=== PATIENT | male | born 1945 | race Caucasian/White ===

== ENCOUNTER 2019-02-02 12:26 | Emergency (ER) | payer MEDICARE, OTHER ==
[2019-02-02] MEDS ORDERED: Sodium Chloride 0.9% 10 ML Syringe FLUSH PRN (12:32)
[2019-02-02] MEDS ORDERED: Iopamidol 612 MG/ML 100 ML Bottle IVPUSH ONE (12:45)
[2019-02-02 13:19] LABS: CHLORIDE,CL 105 mmol/L (98-107); SODIUM,NA 142 mmol/L (136-145)
[2019-02-02 13:21] LABS: ANION GAP 11.9 mmol/L (10-20)
[2019-02-02] MEDS ORDERED: Morphine 4 MG/ML Syringe IVPUSH ONE (13:25)
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
[2019-02-02] MEDS ORDERED: Morphine 2 MG/ML Syringe IVPUSH ONE (14:37)
[2019-02-02] MEDS ORDERED: Ondansetron 4 MG/2 ML SDV IVPUSH ONE (14:37)
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
[2019-02-02 16:11] LABS: BARBITURATE SCREEN,URINE NEGATIVE (NEGATIVE); BENZODIAZEPINES SCREEN,URINE NEGATIVE (NEGATIVE); EDDP,URINE SCREEN NEGATIVE (NEGATIVE); METHAMPHETAMINE SCREEN, URINE NEGATIVE (NEGATIVE); TCA SCREEN,URINE NEGATIVE (NEGATIVE); THC SCREEN,URINE 50 NG/ML NEGATIVE (NEGATIVE)
== END 2019-02-02 16:01 | disposition short-term general hospital (02) ==
LOC: VM.ED 12:26
DX: S22.079A Unspecified fracture of T9-T10 vertebra, initial encounter for closed fracture (principal); S22.089A Unspecified fracture of T11-T12 vertebra, initial encounter for closed fracture; S00.31XA Abrasion of nose, initial encounter; I25.10 Atherosclerotic heart disease of native coronary artery without angina pectoris; E78.00 Pure hypercholesterolemia, unspecified; I10 Essential (primary) hypertension; J44.9 Chronic obstructive pulmonary disease, unspecified; F17.210 Nicotine dependence, cigarettes, uncomplicated; Z79.82 Long term (current) use of aspirin; Z88.8 Allergy status to other drugs, medicaments and biological substances; Z79.899 Other long term (current) drug therapy; V67.5XXA Driver of heavy transport vehicle injured in collision with fixed or stationary object in traffic accident, initial encounter; Y92.410 Unspecified street and highway as the place of occurrence of the external cause
CPT/HCPCS: 36415; 70450; 71260; 72125; 72128; 72131; 74177; 80053; 80305; 81001; 84484; 85025; 93005; 96374; 96375; 96376; 99285; G0480; J2270; J2405; Q9967

== ENCOUNTER 2019-02-09 15:17 | Inpatient (IN) | payer OTHER, MEDICARE ==
[2019-02-09] MEDS ORDERED: Albuterol/Ipratropium 3.0-0.5 MG/3 ML Neb Soln INH PRN (18:39)
[2019-02-09] MEDS ORDERED: tiZANidine 4 MG Tab PO PRN (18:40)
[2019-02-09] MEDS: Tamsulosin 0.4 MG Cap.ER PO SCH (19:36)
[2019-02-09] MEDS: oxyCODONE 5 MG Tab PO PRN (19:36)
[2019-02-09] MEDS: Simvastatin 10 MG Tab PO SCH (19:36)
[2019-02-09] MEDS: Calcium Carbonate 750 MG Tab.Chew PO PRN (19:36)
[2019-02-09] MEDS: Albuterol/Ipratropium 3.0-0.5 MG/3 ML Neb Soln INH SCH (19:43)
[2019-02-10] MEDS: Albuterol/Ipratropium 3.0-0.5 MG/3 ML Neb Soln INH SCH ×2 (01:06→06:08)
[2019-02-10] MEDS: Aspirin 81 MG Tab.EC PO SCH (07:17)
[2019-02-10] MEDS: oxyCODONE 5 MG Tab PO PRN ×4 (07:17→19:51)
[2019-02-10] MEDS: Polyethylene Glycol 3350 Powder 17 GM Packet PO SCH (07:19)
[2019-02-10] MEDS: predniSONE 20 MG Tab PO SCH (07:20)
[2019-02-10] MEDS: Lisinopril 5 MG Tab PO SCH (07:20)
[2019-02-10] MEDS ORDERED: amLODIPine 5 MG Tab PO SCH (08:00)
[2019-02-10] MEDS ORDERED: atorvaSTATin 40 MG Tab PO SCH (08:00)
[2019-02-10] MEDS ORDERED: Albuterol/Ipratropium 3.0-0.5 MG/3 ML Neb Soln INH SCH (11:11)
[2019-02-10] MEDS: Calcium Carbonate 750 MG Tab.Chew PO PRN ×2 (12:01→19:53)
[2019-02-10] MEDS: Indacaterol/Glycopyrrolate 1 EA Cap.W.Dev Kit of 6 IH SCH ×2 (12:12→19:53)
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
[2019-02-10] MEDS: Simvastatin 10 MG Tab PO SCH (19:52)
[2019-02-10] MEDS: tiZANidine 4 MG Tab PO PRN (19:52)
[2019-02-10] MEDS: Tamsulosin 0.4 MG Cap.ER PO SCH (19:53)
[2019-02-10] MEDS: Nicotine 21 MG/24 Hr Patch TRDERM SCH (21:11)
[2019-02-11] MEDS: Polyethylene Glycol 3350 Powder 17 GM Packet PO SCH (08:09)
[2019-02-11] MEDS: Nicotine 21 MG/24 Hr Patch TRDERM SCH (08:10)
[2019-02-11] MEDS: Aspirin 81 MG Tab.EC PO SCH (08:13)
[2019-02-11] MEDS: Indacaterol/Glycopyrrolate 1 EA Cap.W.Dev Kit of 6 IH SCH ×2 (08:13→19:32)
[2019-02-11] MEDS: oxyCODONE 5 MG Tab PO PRN ×3 (08:13→19:32)
[2019-02-11] MEDS: Lisinopril 5 MG Tab PO SCH (08:14)
[2019-02-11] MEDS: predniSONE 20 MG Tab PO SCH (08:15)
[2019-02-11] MEDS: Calcium Carbonate 750 MG Tab.Chew PO PRN ×2 (08:15→19:33)
[2019-02-11] MEDS: amLODIPine 10 MG Tab PO SCH (08:15)
[2019-02-11] MEDS ORDERED: Polyethylene Glycol 3350 Powder 17 GM Packet PO PRN (15:27)
[2019-02-11] MEDS: Tamsulosin 0.4 MG Cap.ER PO SCH (19:32)
[2019-02-11] MEDS: Simvastatin 10 MG Tab PO SCH (19:32)
[2019-02-11] MEDS: tiZANidine 4 MG Tab PO PRN (19:33)
[2019-02-12] MEDS: Polyethylene Glycol 3350 Powder 17 GM Packet PO SCH (07:47)
[2019-02-12] MEDS: Aspirin 81 MG Tab.EC PO SCH (07:48)
[2019-02-12] MEDS: predniSONE 20 MG Tab PO SCH (07:48)
[2019-02-12] MEDS: Nicotine 21 MG/24 Hr Patch TRDERM SCH (07:48)
[2019-02-12] MEDS: Indacaterol/Glycopyrrolate 1 EA Cap.W.Dev Kit of 6 IH SCH ×2 (07:49→19:50)
[2019-02-12] MEDS: amLODIPine 10 MG Tab PO SCH (07:51)
[2019-02-12] MEDS: Lisinopril 5 MG Tab PO SCH (07:51)
[2019-02-12] MEDS: oxyCODONE 5 MG Tab PO PRN ×2 (15:01→19:47)
[2019-02-12] MEDS: Simvastatin 10 MG Tab PO SCH (19:43)
[2019-02-12] MEDS: Tamsulosin 0.4 MG Cap.ER PO SCH (19:45)
[2019-02-12] MEDS: Calcium Carbonate 750 MG Tab.Chew PO PRN (19:57)
[2019-02-13] MEDS: Polyethylene Glycol 3350 Powder 17 GM Packet PO SCH (08:05)
[2019-02-13] MEDS: Lisinopril 5 MG Tab PO SCH (08:06)
[2019-02-13] MEDS: Aspirin 81 MG Tab.EC PO SCH (08:06)
[2019-02-13] MEDS: predniSONE 20 MG Tab PO SCH (08:06)
[2019-02-13] MEDS: Nicotine 21 MG/24 Hr Patch TRDERM SCH (08:06)
[2019-02-13] MEDS: amLODIPine 10 MG Tab PO SCH (08:07)
[2019-02-13] MEDS: Indacaterol/Glycopyrrolate 1 EA Cap.W.Dev Kit of 6 IH SCH ×2 (08:10→20:20)
[2019-02-13] MEDS: oxyCODONE 5 MG Tab PO PRN ×3 (10:22→20:25)
[2019-02-13] MEDS: Tamsulosin 0.4 MG Cap.ER PO SCH (20:18)
[2019-02-13] MEDS: Simvastatin 10 MG Tab PO SCH (20:19)
[2019-02-14] MEDS: predniSONE 20 MG Tab PO SCH (08:15)
[2019-02-14] MEDS: Aspirin 81 MG Tab.EC PO SCH (08:15)
[2019-02-14] MEDS: oxyCODONE 5 MG Tab PO PRN ×2 (08:15→20:31)
[2019-02-14] MEDS: Lisinopril 5 MG Tab PO SCH (08:16)
[2019-02-14] MEDS: amLODIPine 10 MG Tab PO SCH (08:16)
[2019-02-14] MEDS: Indacaterol/Glycopyrrolate 1 EA Cap.W.Dev Kit of 6 IH SCH ×2 (08:17→19:35)
[2019-02-14] MEDS: Nicotine 21 MG/24 Hr Patch TRDERM SCH (08:17)
[2019-02-14] MEDS: Polyethylene Glycol 3350 Powder 17 GM Packet PO SCH (08:18)
[2019-02-14] MEDS: Tamsulosin 0.4 MG Cap.ER PO SCH (19:36)
[2019-02-14] MEDS: Simvastatin 10 MG Tab PO SCH (19:36)
[2019-02-15] MEDS: Indacaterol/Glycopyrrolate 1 EA Cap.W.Dev Kit of 6 IH SCH ×2 (07:36→20:49)
[2019-02-15] MEDS: Polyethylene Glycol 3350 Powder 17 GM Packet PO SCH (07:36)
[2019-02-15] MEDS: Aspirin 81 MG Tab.EC PO SCH (07:37)
[2019-02-15] MEDS: Nicotine 21 MG/24 Hr Patch TRDERM SCH (07:37)
[2019-02-15] MEDS: predniSONE 20 MG Tab PO SCH (07:37)
[2019-02-15] MEDS: Lisinopril 5 MG Tab PO SCH (07:38)
[2019-02-15] MEDS: amLODIPine 10 MG Tab PO SCH (07:38)
[2019-02-15] MEDS: oxyCODONE 5 MG Tab PO PRN ×3 (09:03→20:51)
[2019-02-15] MEDS: Tamsulosin 0.4 MG Cap.ER PO SCH (20:51)
[2019-02-15] MEDS: Simvastatin 10 MG Tab PO SCH (20:51)
[2019-02-16] MEDS: oxyCODONE 5 MG Tab PO PRN ×3 (05:15→19:23)
[2019-02-16] MEDS: Lisinopril 5 MG Tab PO SCH (08:55)
[2019-02-16] MEDS: Aspirin 81 MG Tab.EC PO SCH (08:55)
[2019-02-16] MEDS: predniSONE 20 MG Tab PO SCH (08:55)
[2019-02-16] MEDS: amLODIPine 10 MG Tab PO SCH (08:55)
[2019-02-16] MEDS: Polyethylene Glycol 3350 Powder 17 GM Packet PO SCH (08:55)
[2019-02-16] MEDS: Indacaterol/Glycopyrrolate 1 EA Cap.W.Dev Kit of 6 IH SCH ×2 (08:56→19:25)
[2019-02-16] MEDS: Nicotine 21 MG/24 Hr Patch TRDERM SCH (08:57)
[2019-02-16] MEDS ORDERED: Hydrocortisone 1% Crm 30 GM Tube TOP PRN (11:24)
[2019-02-16] MEDS: Simvastatin 10 MG Tab PO SCH (19:24)
[2019-02-16] MEDS: Tamsulosin 0.4 MG Cap.ER PO SCH (19:24)
[2019-02-17] MEDS: oxyCODONE 5 MG Tab PO PRN ×3 (00:27→19:24)
[2019-02-17] MEDS: Indacaterol/Glycopyrrolate 1 EA Cap.W.Dev Kit of 6 IH SCH ×2 (07:23→19:25)
[2019-02-17] MEDS: Nicotine 21 MG/24 Hr Patch TRDERM SCH (07:23)
[2019-02-17] MEDS: Lisinopril 5 MG Tab PO SCH (07:25)
[2019-02-17] MEDS: predniSONE 20 MG Tab PO SCH (07:25)
[2019-02-17] MEDS: Polyethylene Glycol 3350 Powder 17 GM Packet PO SCH (07:25)
[2019-02-17] MEDS: Aspirin 81 MG Tab.EC PO SCH (07:25)
[2019-02-17] MEDS: amLODIPine 10 MG Tab PO SCH (07:25)
[2019-02-17] MEDS: Tamsulosin 0.4 MG Cap.ER PO SCH (19:24)
[2019-02-17] MEDS: Simvastatin 10 MG Tab PO SCH (19:25)
[2019-02-18] MEDS: oxyCODONE 5 MG Tab PO PRN (08:12)
[2019-02-18] MEDS: Nicotine 21 MG/24 Hr Patch TRDERM SCH (08:12)
[2019-02-18] MEDS: Polyethylene Glycol 3350 Powder 17 GM Packet PO SCH (08:13)
[2019-02-18] MEDS: Indacaterol/Glycopyrrolate 1 EA Cap.W.Dev Kit of 6 IH SCH (08:13)
[2019-02-18] MEDS: Lisinopril 5 MG Tab PO SCH (08:13)
[2019-02-18] MEDS: Aspirin 81 MG Tab.EC PO SCH (08:13)
[2019-02-18] MEDS: amLODIPine 10 MG Tab PO SCH (08:13)
[2019-02-18] MEDS: predniSONE 20 MG Tab PO SCH (08:13)
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
== END 2019-02-18 14:10 | disposition home or self-care (01) | DRG 552 ==
LOC: VM.MS 15:49
PROVIDERS: ADMIT Family Medicine; ATTEND Family Medicine
DX: S32.012A Unstable burst fracture of first lumbar vertebra, initial encounter for closed fracture (principal); I25.10 Atherosclerotic heart disease of native coronary artery without angina pectoris; E78.00 Pure hypercholesterolemia, unspecified; I10 Essential (primary) hypertension; J44.9 Chronic obstructive pulmonary disease, unspecified; F17.210 Nicotine dependence, cigarettes, uncomplicated; M19.91 Primary osteoarthritis, unspecified site; Z85.51 Personal history of malignant neoplasm of bladder; Z88.8 Allergy status to other drugs, medicaments and biological substances; Z79.82 Long term (current) use of aspirin; Z79.899 Other long term (current) drug therapy
CPT/HCPCS: 94640; 94760; 97110-GP; 97116-GP; 97161-GP; 97165-GO; 97530-GP; 97535-GO; A9270-GY; J7620-GY

== ENCOUNTER 2023-02-18 16:04 | Inpatient (IN) | payer MEDICARE, OTHER ==
[2023-02-18] MEDS ORDERED: Ondansetron 4 MG Tab.DIS PO PRN (16:58)
[2023-02-18] MEDS ORDERED: Acetaminophen 325 MG Tab PO PRN (16:58)
[2023-02-18] MEDS ORDERED: Sodium Bicarbonate 150 MEQ in Dextrose 5% in Water 1,000 ML IV ONE ×2 (17:04)
[2023-02-18] MEDS ORDERED: Albuterol HFA 18 Gm Inhaler INH PRN (17:24)
[2023-02-18] MEDS ORDERED: Calcium Carbonate 750 MG Tab.Chew PO PRN (17:54)
[2023-02-18 19:16] LABS: CALCIUM 8.2 mg/dL (8.5-10.1); EST CRCL DRUG DOSING (CG) 6.34 mL/min; POTASSIUM,K 5.4 mmol/L (3.5-5.1)
[2023-02-18 19:17] LABS: ANION GAP 16.4 mmol/L (5-15)
[2023-02-18] MEDS: amLODIPine 5 MG Tab PO SCH (19:17)
[2023-02-18 19:19] LABS: CREATININE 8.8 mg/dL (0.70-1.30)
[2023-02-18] MEDS: Tamsulosin 0.4 MG Cap.ER PO SCH (20:46)
[2023-02-18] MEDS: Albuterol/Ipratropium 3.0-0.5 MG/3 ML Neb Soln INH SCH (20:47)
[2023-02-18] MEDS: Simvastatin 10 MG Tab PO SCH (20:47)
[2023-02-18] MEDS: Dextrose 5% in Water 1,000 ML IV SCH (22:42)
[2023-02-19] MEDS: Dextrose 5% in Water 1,000 ML IV SCH (05:10)
[2023-02-19 06:58] LABS: BASOPHILS PERCENT AUTO 0.2 % (0.2-1.2); EOSINOPHILS ABSOLUTE AUTO 0.3 x10^3/uL (0.0-0.5); EOSINOPHILS PERCENT AUTO 3.8 % (0.0-4.0); HEMATOCRIT 27.9 % (40.0-52.0); HEMOGLOBIN 9.7 g/dL (14.0-18.0); IMMATURE GRAN ABSOLUTE AUTO 0.02 x10^3/uL (0.00-0.07); LYMPHOCYTES ABSOLUTE AUTO 1.5 x10^3/uL (1.0-4.8); LYMPHOCYTES PERCENT AUTO 22.6 % (25.0-50.0); MEAN CORPUSCULAR HEMOGLOBIN 30.8 pg (26.0-32.0); MEAN CORPUSCULAR HGB CONC 34.8 g/dL (32.0-36.0); MEAN CORPUSCULAR VOLUME 88.6 fL (78.0-93.0); MONOCYTES ABSOLUTE AUTO 0.6 x10^3/uL (0.0-0.8); MONOCYTES PERCENT AUTO 8.9 % (2.0-11.0); NEUTROPHILS ABSOLUTE AUTO 4.2 x10^3/uL (1.8-7.7); NEUTROPHILS PERCENT AUTO 64.2 % (50.0-80.0); PLATELET COUNT,PLT 284 x10^3/uL (130-400); RED BLOOD CELL COUNT 3.15 x10^6/uL (4.5-6.0); WHITE BLOOD CELL COUNT,WBC 6.5 x10^3/uL (4.0-10.0)
[2023-02-19 07:19] LABS: A/G RATIO 0.73; ALBUMIN 2.7 g/dL (3.4-5.0); ALKALINE PHOSPHATASE 69 U/L (46-116); BILIRUBIN TOTAL 0.2 mg/dL (0.2-1.0); BLOOD UREA NITROGEN,BUN 50 mg/dL (7-18); CALCIUM 8.5 mg/dL (8.5-10.1); CARBON DIOXIDE,CO2 30 mmol/L (21-32); CHLORIDE,CL 106 mmol/L (98-107); GLUCOSE RANDOM 94 mg/dL (70-99); POTASSIUM,K 3.9 mmol/L (3.5-5.1); PROTEIN TOTAL,TP 6.4 g/dL (6.4-8.2); SODIUM,NA 143 mmol/L (136-145)
[2023-02-19] MEDS: Albuterol/Ipratropium 3.0-0.5 MG/3 ML Neb Soln INH SCH ×4 (07:21→20:22)
[2023-02-19 07:30] LABS: ALANINE AMINOTRANSFERASE,ALT 11 U/L (16-63); ANION GAP 10.9 mmol/L (5-15)
[2023-02-19 07:32] LABS: ASPARTATE AMNIOTRANSFERASE,AST < 10 U/L (15-37); CREATININE 3.1 mg/dL (0.70-1.30); ESTIMATED GFR 20 mL/min (>=60)
[2023-02-19] MEDS ORDERED: Enoxaparin 40 MG/0.4 ML Syringe SUBCUT SCH (09:00)
[2023-02-19] MEDS ORDERED: amLODIPine 5 MG Tab PO SCH (09:00)
[2023-02-19] MEDS: Nicotine 14 MG/24 Hr Patch TRDERM SCH (09:16)
[2023-02-19] MEDS: Aspirin 81 MG Tab.Chew PO SCH (09:16)
[2023-02-19] MEDS: amLODIPine 5 MG Tab PO SCH (09:20)
[2023-02-19] MEDS: Heparin Sodium 5,000 Units/ML Vial SUBCUT SCH ×2 (09:22→18:22)
[2023-02-19] MEDS: Sodium Chloride 0.9% 1,000 ML IV SCH ×2 (11:55→19:47)
[2023-02-19] MEDS: Simvastatin 10 MG Tab PO SCH (20:21)
[2023-02-19] MEDS: Tamsulosin 0.4 MG Cap.ER PO SCH (20:21)
[2023-02-20] MEDS: Heparin Sodium 5,000 Units/ML Vial SUBCUT SCH ×2 (01:45→09:18)
[2023-02-20] MEDS: Sodium Chloride 0.9% 1,000 ML IV SCH (03:41)
[2023-02-20] MEDS: Albuterol/Ipratropium 3.0-0.5 MG/3 ML Neb Soln INH SCH ×2 (06:35→10:03)
[2023-02-20 06:57] LABS: HEMATOCRIT 29.6 % (40.0-52.0); MEAN CORPUSCULAR HEMOGLOBIN 30.3 pg (26.0-32.0); MEAN CORPUSCULAR HGB CONC 33.8 g/dL (32.0-36.0); MEAN CORPUSCULAR VOLUME 89.7 fL (78.0-93.0); RED BLOOD CELL COUNT 3.3 x10^6/uL (4.5-6.0); WHITE BLOOD CELL COUNT,WBC 6.1 x10^3/uL (4.0-10.0)
[2023-02-20 07:14] LABS: ANION GAP 12.2 mmol/L (5-15); CALCIUM 8.1 mg/dL (8.5-10.1); CREATININE 1.2 mg/dL (0.70-1.30); EST CRCL DRUG DOSING (CG) 46.76 mL/min; POTASSIUM,K 4.2 mmol/L (3.5-5.1)
[2023-02-20] MEDS: Nicotine 14 MG/24 Hr Patch TRDERM SCH (09:16)
[2023-02-20] MEDS: Aspirin 81 MG Tab.Chew PO SCH (09:20)
[2023-02-20] MEDS: amLODIPine 5 MG Tab PO SCH (09:21)
== END 2023-02-20 14:20 | disposition home or self-care (01) | DRG 683 ==
LOC: VM.MS 16:04
PROVIDERS: ADMIT Family Medicine; ATTEND Family Medicine
PROC: 0T9B70Z Drainage of Bladder with Drainage Device, Via Natural or Artificial Opening (ICD-10-PCS; principal; 2023-02-18)
DX: N17.9 Acute kidney failure, unspecified (principal); E87.20 Acidosis, unspecified; I12.9 Hypertensive chronic kidney disease with stage 1 through stage 4 chronic kidney disease, or unspecified chronic kidney disease; N18.30 Chronic kidney disease, stage 3 unspecified; J44.9 Chronic obstructive pulmonary disease, unspecified; I73.9 Peripheral vascular disease, unspecified; Z66 Do not resuscitate; D63.1 Anemia in chronic kidney disease; E78.00 Pure hypercholesterolemia, unspecified; M19.90 Unspecified osteoarthritis, unspecified site; F17.210 Nicotine dependence, cigarettes, uncomplicated; E87.5 Hyperkalemia; N40.0 Benign prostatic hyperplasia without lower urinary tract symptoms; N13.30 Unspecified hydronephrosis; R33.9 Retention of urine, unspecified; N32.89 Other specified disorders of bladder; Z85.51 Personal history of malignant neoplasm of bladder; Z90.6 Acquired absence of other parts of urinary tract; Z87.01 Personal history of pneumonia (recurrent); Z79.899 Other long term (current) drug therapy; Z79.82 Long term (current) use of aspirin; Z88.8 Allergy status to other drugs, medicaments and biological substances
CPT/HCPCS: 36415; 51702; 51798; 74176; 80048; 80053; 82947; 85025; 85027; 94640; A9270-GY; J1644; J3490; J7030; J7060; J7620-GY

== ENCOUNTER 2023-03-23 10:53 | Emergency (ER) | payer MEDICARE, OTHER | END 2023-03-23 11:25 | disposition home or self-care (01) | LOC: VM.ED 10:53 | DX: T83.021A Displacement of indwelling urethral catheter, initial encounter (principal); I25.10 Atherosclerotic heart disease of native coronary artery without angina pectoris; J44.9 Chronic obstructive pulmonary disease, unspecified; E78.00 Pure hypercholesterolemia, unspecified; I10 Essential (primary) hypertension; Z88.8 Allergy status to other drugs, medicaments and biological substances; Z79.899 Other long term (current) drug therapy; Z79.82 Long term (current) use of aspirin | CPT/HCPCS: 99283 ==

== ENCOUNTER 2024-03-26 18:03 | Inpatient (IN) | payer MEDICARE, OTHER ==
[2024-03-26] MEDS ORDERED: Sodium Chloride 0.9% 10 ML Syringe FLUSH PRN (18:10)
[2024-03-26 18:26] LABS: BASOPHILS PERCENT AUTO 0.1 % (0.2-1.2); EOSINOPHILS ABSOLUTE AUTO 0.1 x10^3/uL (0.0-0.5); EOSINOPHILS PERCENT AUTO 0.3 % (0.0-4.0); HEMATOCRIT 42.4 % (40.0-52.0); HEMOGLOBIN 13.7 g/dL (14.0-18.0); IMMATURE GRAN ABSOLUTE AUTO 0.06 x10^3/uL (0.00-0.07); LYMPHOCYTES ABSOLUTE AUTO 1.9 x10^3/uL (1.0-4.8); LYMPHOCYTES PERCENT AUTO 10.4 % (25.0-50.0); MEAN CORPUSCULAR HEMOGLOBIN 30.8 pg (26.0-32.0); MEAN CORPUSCULAR HGB CONC 32.3 g/dL (32.0-36.0); MEAN CORPUSCULAR VOLUME 95.3 fL (78.0-93.0); MONOCYTES ABSOLUTE AUTO 1.3 x10^3/uL (0.0-0.8); NEUTROPHILS ABSOLUTE AUTO 14.7 x10^3/uL (1.8-7.7); NEUTROPHILS PERCENT AUTO 81.9 % (50.0-80.0); PLATELET COUNT,PLT 322 x10^3/uL (130-400); RED BLOOD CELL COUNT 4.45 x10^6/uL (4.5-6.0)
[2024-03-26 18:50] LABS: CREATININE 1.9 mg/dL (0.70-1.30); ESTIMATED GFR 36 mL/min (>=60)
[2024-03-26] MEDS: fentaNYL 50 MCG/ML SDV IVPUSH ONE ×2 (18:52→20:42)
[2024-03-26 19:03] LABS: A/G RATIO 0.82; ALANINE AMINOTRANSFERASE,ALT 21 U/L (16-63); ALBUMIN 3.2 g/dL (3.4-5.0); ALKALINE PHOSPHATASE 73 U/L (46-116); ASPARTATE AMNIOTRANSFERASE,AST 13 U/L (15-37); BILIRUBIN TOTAL 0.3 mg/dL (0.2-1.0); BLOOD UREA NITROGEN,BUN 23 mg/dL (7-18); CALCIUM 8.9 mg/dL (8.5-10.1); CARBON DIOXIDE,CO2 25 mmol/L (21-32); CHLORIDE,CL 108 mmol/L (98-107); GLUCOSE RANDOM 191 mg/dL (70-99); POTASSIUM,K 4.3 mmol/L (3.5-5.1); PROTEIN TOTAL,TP 7.1 g/dL (6.4-8.2); SODIUM,NA 142 mmol/L (136-145)
[2024-03-26 19:06] LABS: ANION GAP 13.3 mmol/L (5-15)
[2024-03-26] MEDS: Iopamidol 612 MG/ML 100 ML Bottle IVPUSH ONE (19:29)
[2024-03-26] MEDS: Sodium Chloride 0.9% 1,000 ML IV ONE (19:40)
[2024-03-26 20:34] LABS: LIPASE 12538 U/L (19-71)
[2024-03-26] MEDS ORDERED: Albuterol/Ipratropium 3.0-0.5 MG/3 ML Neb Soln NEB PRN (21:07)
[2024-03-26] MEDS ORDERED: Ondansetron 4 MG/2 ML SDV IV PRN (21:07)
[2024-03-26] MEDS ORDERED: 50% Dextrose in Water 50 ML Syringe IVPUSH PRN (21:22)
[2024-03-26] MEDS ORDERED: Glucagon,Human Recombinant 1 MG Vial IM PRN (21:22)
[2024-03-26] MEDS: Enoxaparin 40 MG/0.4 ML Syringe SUBCUT ONE (21:44)
[2024-03-26] MEDS: Sodium Chloride 0.9% 1,000 ML IV SCH (21:44)
[2024-03-26] MEDS: Pantoprazole 40 MG Tab.CR PO SCH (21:50)
[2024-03-26] MEDS: HYDROmorphone 0.5 MG/0.5 ML Syringe IVPUSH PRN (22:17)
[2024-03-27 08:16] LABS: EOSINOPHILS PERCENT AUTO 0.1 % (0.0-4.0); HEMATOCRIT 44.9 % (40.0-52.0); HEMOGLOBIN 14.7 g/dL (14.0-18.0); IMMATURE GRAN ABSOLUTE AUTO 0.04 x10^3/uL (0.00-0.07); LYMPHOCYTES PERCENT AUTO 6.2 % (25.0-50.0); MEAN CORPUSCULAR HEMOGLOBIN 31.1 pg (26.0-32.0); MEAN CORPUSCULAR HGB CONC 32.7 g/dL (32.0-36.0); MEAN CORPUSCULAR VOLUME 94.9 fL (78.0-93.0); MONOCYTES PERCENT AUTO 6.1 % (2.0-11.0); NEUTROPHILS ABSOLUTE AUTO 14.2 x10^3/uL (1.8-7.7); NEUTROPHILS PERCENT AUTO 87.4 % (50.0-80.0); PLATELET COUNT,PLT 336 x10^3/uL (130-400); RED BLOOD CELL COUNT 4.73 x10^6/uL (4.5-6.0); WHITE BLOOD CELL COUNT,WBC 16.2 x10^3/uL (4.0-10.0)
[2024-03-27 08:22] LABS: HEMOGLOBIN A1C 5.7 % (<5.7)
[2024-03-27 08:50] LABS: APPEARANCE,URINE CLEAR (CLEAR); BILIRUBIN,URINE NEGATIVE (NEGATIVE); COLOR,URINE YELLOW (YELLOW); GLUCOSE,URINE NEGATIVE (NEGATIVE); KETONES,URINE 15 mg/dL (NEGATIVE); LEUKOCYTE ESTERASE,URINE NEGATIVE (NEGATIVE); NITRITE,URINE NEGATIVE (NEGATIVE); OCCULT BLOOD,URINE TRACE-INTACT (NEGATIVE); PH,URINE 5.5 (5.0-8.0); PROTEIN,URINE NEGATIVE (NEGATIVE); UROBILINOGEN,URINE 0.2 EU/dL (0.2)
[2024-03-27 08:55] LABS: A/G RATIO 0.69; ALBUMIN 3.1 g/dL (3.4-5.0); ANION GAP 15.3 mmol/L (5-15); BILIRUBIN TOTAL 0.4 mg/dL (0.2-1.0); C-REACTIVE PROTEIN 1.74 mg/dL (<=0.50); CALCIUM 8.4 mg/dL (8.5-10.1); CREATININE 1.3 mg/dL (0.70-1.30); EST CRCL DRUG DOSING (CG) 43.78 mL/min; MAGNESIUM 1.8 mg/dL (1.8-2.4); POTASSIUM,K 4.3 mmol/L (3.5-5.1); PROTEIN TOTAL,TP 7.6 g/dL (6.4-8.2); TSH ULTRASENSITIVE 1.045 uIU/mL (0.358-3.74)
[2024-03-27] MEDS: Insulin Lispro 100 Units/ML 3 ML Vial SUBCUT SCH (08:55)
[2024-03-27] MEDS: Nicotine 14 MG/24 Hr Patch TRDERM SCH (09:12)
[2024-03-27] MEDS: Tiotropium BR/Olodaterol HCL 4 GM Inhalation Spray 2.5mcg/1 dose; 10 doses INH SCH (09:12)
[2024-03-27] MEDS: Pantoprazole 40 MG Vial IVPUSH SCH (09:14)
[2024-03-27 09:21] LABS: BACTERIA,URINE NOT SEEN /HPF (NOT SEEN); MUCUS,URINE NOT SEEN /LPF (NOT SEEN); RBC,URINE 0-5 /HPF (NOT SEEN); SQUAMOUS EPITHELIAL CELLS,UR RARE /HPF (NOT SEEN); WBC,URINE 0-5 /HPF (NOT SEEN)
[2024-03-27] MEDS: Lisinopril 5 MG Tab PO SCH (09:22)
[2024-03-27] MEDS: amLODIPine 5 MG Tab PO SCH (09:22)
[2024-03-27] MEDS: Albuterol/Ipratropium 3.0-0.5 MG/3 ML Neb Soln NEB SCH (10:35)
[2024-03-27] MEDS ORDERED: Albuterol/Ipratropium 3.0-0.5 MG/3 ML Neb Soln NEB PRN (14:27)
[2024-03-27] MEDS ORDERED: Flumazenil 0.1 MG/ML 5 ML MDV IVPUSH PRN (19:35)
[2024-03-27] MEDS ORDERED: LORazepam 2 MG/ML SDV IVPUSH PRN (19:35)
[2024-03-27] MEDS: Enoxaparin 40 MG/0.4 ML Syringe SUBCUT SCH (20:34)
[2024-03-27] MEDS ORDERED: Pantoprazole 40 MG Tab.CR PO SCH (21:00)
[2024-03-28 08:10] LABS: HEMATOCRIT 36.9 % (40.0-52.0); HEMOGLOBIN 12.2 g/dL (14.0-18.0); MEAN CORPUSCULAR HEMOGLOBIN 31.4 pg (26.0-32.0); MEAN CORPUSCULAR HGB CONC 33.1 g/dL (32.0-36.0); MEAN CORPUSCULAR VOLUME 95.1 fL (78.0-93.0); PLATELET COUNT,PLT 260 x10^3/uL (130-400); RED BLOOD CELL COUNT 3.88 x10^6/uL (4.5-6.0)
[2024-03-28 08:13] LABS: WHITE BLOOD CELL COUNT,WBC 21.9 x10^3/uL (4.0-10.0)
[2024-03-28 08:24] LABS: BAND PERCENT MAN 1 % (0-6); LYMPHOCYTES ABSOLUTE MAN 0.9 x10^3/uL (1.0-4.8); LYMPHOCYTES PERCENT MAN 4 % (25-50); MONOCYTES ABSOLUTE MAN 1.8 x10^3/uL (0.0-0.8); MONOCYTES PERCENT MAN 8 % (2-11); NEUTROPHILS ABSOLUTE MAN 19.3 x10^3/uL (1.8-7.7); SEG NEUTROPHILS PERCENT MAN 87 % (50-80)
[2024-03-28 08:25] LABS: PLATELET COUNT ESTIMATE ADEQUATE; TOXIC GRANULATION 1+ SLIGHT; VACUOLATED NEUTROPHILS 1+ SLIGHT
[2024-03-28 08:32] LABS: A/G RATIO 0.7; ALBUMIN 2.6 g/dL (3.4-5.0); BILIRUBIN TOTAL 0.5 mg/dL (0.2-1.0); CALCIUM 7.9 mg/dL (8.5-10.1); CREATININE 1.2 mg/dL (0.70-1.30); EST CRCL DRUG DOSING (CG) 47.43 mL/min; POTASSIUM,K 3.9 mmol/L (3.5-5.1); PROTEIN TOTAL,TP 6.3 g/dL (6.4-8.2)
[2024-03-28 08:34] LABS: ANION GAP 7.9 mmol/L (5-15)
[2024-03-28] MEDS: Nicotine 21 MG/24 Hr Patch TRDERM SCH (08:44)
[2024-03-28] MEDS: Metoprolol Tartrate 25 MG Tab PO SCH (08:45)
[2024-03-28] MEDS: oxyCODONE 5 MG Tab PO PRN (13:37)
[2024-03-29 07:28] LABS: BASOPHILS PERCENT AUTO 0.1 % (0.2-1.2); HEMATOCRIT 33.3 % (40.0-52.0); IMMATURE GRAN ABSOLUTE AUTO 0.12 x10^3/uL (0.00-0.07); LYMPHOCYTES ABSOLUTE AUTO 1.2 x10^3/uL (1.0-4.8); LYMPHOCYTES PERCENT AUTO 7.5 % (25.0-50.0); MEAN CORPUSCULAR HEMOGLOBIN 31.6 pg (26.0-32.0); MEAN CORPUSCULAR VOLUME 95.7 fL (78.0-93.0); MONOCYTES ABSOLUTE AUTO 1.3 x10^3/uL (0.0-0.8); MONOCYTES PERCENT AUTO 8.5 % (2.0-11.0); NEUTROPHILS ABSOLUTE AUTO 12.7 x10^3/uL (1.8-7.7); NEUTROPHILS PERCENT AUTO 83.1 % (50.0-80.0); PLATELET COUNT,PLT 215 x10^3/uL (130-400); RED BLOOD CELL COUNT 3.48 x10^6/uL (4.5-6.0); WHITE BLOOD CELL COUNT,WBC 15.3 x10^3/uL (4.0-10.0)
[2024-03-29 07:52] LABS: A/G RATIO 0.66; ALBUMIN 2.3 g/dL (3.4-5.0); BILIRUBIN TOTAL 0.4 mg/dL (0.2-1.0); C-REACTIVE PROTEIN 13.93 mg/dL (<=0.50); CALCIUM 8.1 mg/dL (8.5-10.1); CREATININE 1.1 mg/dL (0.70-1.30); EST CRCL DRUG DOSING (CG) 51.74 mL/min; MAGNESIUM 1.6 mg/dL (1.8-2.4); POTASSIUM,K 3.8 mmol/L (3.5-5.1); PROTEIN TOTAL,TP 5.8 g/dL (6.4-8.2)
[2024-03-29 08:01] LABS: ANION GAP 9.8 mmol/L (5-15)
[2024-03-29] MEDS ORDERED: Sodium Chloride 0.9% 10 ML Syringe FLUSH PRN (08:56)
[2024-03-29] MEDS: Carvedilol 6.25 MG Tab PO SCH (09:39)
[2024-03-29] MEDS: Furosemide 20 MG/2 ML VIAL IV ONE (09:40)
[2024-03-29] MEDS: Insulin Lispro 100 Units/ML 3 ML Vial SUBCUT SCH (17:36)
[2024-03-29] MEDS: Pantoprazole 40 MG Tab.CR PO SCH (21:08)
[2024-03-30 07:03] LABS: EOSINOPHILS PERCENT AUTO 0.3 % (0.0-4.0); HEMATOCRIT 30.7 % (40.0-52.0); HEMOGLOBIN 10.1 g/dL (14.0-18.0); IMMATURE GRAN ABSOLUTE AUTO 0.06 x10^3/uL (0.00-0.07); LYMPHOCYTES ABSOLUTE AUTO 1.1 x10^3/uL (1.0-4.8); MEAN CORPUSCULAR HEMOGLOBIN 31.2 pg (26.0-32.0); MEAN CORPUSCULAR HGB CONC 32.9 g/dL (32.0-36.0); MEAN CORPUSCULAR VOLUME 94.8 fL (78.0-93.0); MONOCYTES ABSOLUTE AUTO 1.1 x10^3/uL (0.0-0.8); MONOCYTES PERCENT AUTO 8.2 % (2.0-11.0); NEUTROPHILS ABSOLUTE AUTO 11.4 x10^3/uL (1.8-7.7); NEUTROPHILS PERCENT AUTO 83.1 % (50.0-80.0); PLATELET COUNT,PLT 204 x10^3/uL (130-400); RED BLOOD CELL COUNT 3.24 x10^6/uL (4.5-6.0); WHITE BLOOD CELL COUNT,WBC 13.7 x10^3/uL (4.0-10.0)
[2024-03-30 07:22] LABS: A/G RATIO 0.57; ALBUMIN 2.1 g/dL (3.4-5.0); BILIRUBIN TOTAL 0.5 mg/dL (0.2-1.0); CALCIUM 8.1 mg/dL (8.5-10.1); CREATININE 1.2 mg/dL (0.70-1.30); EST CRCL DRUG DOSING (CG) 47.43 mL/min; MAGNESIUM 1.7 mg/dL (1.8-2.4); POTASSIUM,K 3.6 mmol/L (3.5-5.1); PROTEIN TOTAL,TP 5.8 g/dL (6.4-8.2)
[2024-03-30 07:34] LABS: ANION GAP 13.6 mmol/L (5-15)
== END 2024-03-30 10:40 | disposition home or self-care (01) | DRG 439 ==
LOC: VM.ED 18:03 → VM.MS 20:28
PROVIDERS: ADMIT Family Medicine; ATTEND Family Medicine
DX: K85.90 Acute pancreatitis without necrosis or infection, unspecified (principal); I13.0 Hypertensive heart and chronic kidney disease with heart failure and stage 1 through stage 4 chronic kidney disease, or unspecified chronic kidney disease; I49.5 Sick sinus syndrome; I10 Essential (primary) hypertension; R73.9 Hyperglycemia, unspecified; J44.9 Chronic obstructive pulmonary disease, unspecified; I25.10 Atherosclerotic heart disease of native coronary artery without angina pectoris; I73.9 Peripheral vascular disease, unspecified; E78.00 Pure hypercholesterolemia, unspecified; N18.30 Chronic kidney disease, stage 3 unspecified; I50.9 Heart failure, unspecified; D72.829 Elevated white blood cell count, unspecified; M19.90 Unspecified osteoarthritis, unspecified site; E83.42 Hypomagnesemia; I45.10 Unspecified right bundle-branch block; D47.2 Monoclonal gammopathy; F17.210 Nicotine dependence, cigarettes, uncomplicated; Z88.8 Allergy status to other drugs, medicaments and biological substances; Z85.51 Personal history of malignant neoplasm of bladder; Z98.49 Cataract extraction status, unspecified eye; Z79.82 Long term (current) use of aspirin; Z79.899 Other long term (current) drug therapy; Z87.442 Personal history of urinary calculi
CPT/HCPCS: 36415; 51701; 51798; 71046; 71260; 74177; 80053; 81001; 82947; 83036; 83605; 83690; 83735; 83880; 84145; 84443; 84484; 85025; 86140; 93005; 93010; 94760; 96361; 96374; 97161-GP; 97165-GO; 99284; 99285-25; A9270-GY; C1758; J1170; J1650; J1815-GY; J1940; J2470; J3010; J7030; J7620-GY; Q9967

== ENCOUNTER 2024-04-03 13:01 | Emergency (ER) | payer MEDICARE, OTHER ==
[2024-04-03 13:46] LABS: APPEARANCE,URINE CLOUDY (CLEAR); BILIRUBIN,URINE NEGATIVE (NEGATIVE); COLOR,URINE YELLOW (YELLOW); GLUCOSE,URINE NEGATIVE (NEGATIVE); KETONES,URINE NEGATIVE (NEGATIVE); LEUKOCYTE ESTERASE,URINE MODERATE (NEGATIVE); NITRITE,URINE NEGATIVE (NEGATIVE); OCCULT BLOOD,URINE MODERATE (NEGATIVE); PH,URINE 6.5 (5.0-8.0); PROTEIN,URINE >=300 mg/dL (NEGATIVE)
[2024-04-03 13:51] LABS: BACTERIA,URINE FEW /HPF (NOT SEEN); MUCUS,URINE FEW /LPF (NOT SEEN); RBC,URINE 30-40 /HPF (NOT SEEN); SQUAMOUS EPITHELIAL CELLS,UR NOT SEEN /HPF (NOT SEEN); WBC,URINE 75-100 /HPF (NOT SEEN)
[2024-04-03] MEDS: Take Home: Sulfamethoxazole/Trimethoprim 800-160 MG Tab, 6 Tab Pack PO ONE (13:58)
== END 2024-04-03 14:03 | disposition home or self-care (01) ==
LOC: VM.ED 13:01
DX: N39.0 Urinary tract infection, site not specified (principal); I10 Essential (primary) hypertension; I25.10 Atherosclerotic heart disease of native coronary artery without angina pectoris; E78.00 Pure hypercholesterolemia, unspecified; J44.9 Chronic obstructive pulmonary disease, unspecified; F17.210 Nicotine dependence, cigarettes, uncomplicated; Z79.82 Long term (current) use of aspirin; Z79.899 Other long term (current) drug therapy; Z88.8 Allergy status to other drugs, medicaments and biological substances
CPT/HCPCS: 81001; 87086; 99283; 99284; A9270-GY